=== PATIENT | female | born 1945 ===

== ENCOUNTER 2020-02-01 07:28 | Outpatient (CLI) | payer MEDICARE, OTHER, SELFPAY ==
--- NOTE | ~2020-02-01 | MM_ITS ---
EXAMINATION: MM screening [facility] BI w steven HISTORY: Screening TECHNIQUE: Craniocaudal and mediolateral oblique 3-D tomosynthesis images were obtained and synthetic 2-D images were generated. CAD analysis was submitted and interpreted. COMPARISON: Comparison to multiple prior studies sequentially, with oldest reviewed study dated 09/18. BREAST PARENCHYMAL COMPOSITION: There are scattered areas of fibroglandular density. FINDINGS: There is no evidence of suspicious mass, calcification, or architectural distortion to sugg est malignancy in either breast. There has been no suspicious interval change. IMPRESSION: 1. No mammographic evidence of malignancy. 2. Recommend routine screening mammography in one year. BI-RADS Category 1: Negative Reviewed, dictated and finalized at location A.
== END 2020-02-01 07:29 | disposition home or self-care (01) ==
PROVIDERS: PCP Family Medicine; Visit Provider Family Medicine
DX: Z12.31 Encounter for screening mammogram for malignant neoplasm of breast (principal)
CPT/HCPCS: 77063; 77067

== ENCOUNTER 2021-08-14 08:20 | Outpatient (CLI) | payer MEDICARE, OTHER, SELFPAY ==
--- NOTE | ~2021-08-14 | MM_ITS ---
EXAMINATION: MM screening [facility] BI w steven HISTORY: Screening mammogram TECHNIQUE: Craniocaudal and mediolateral oblique 3-D tomosynthesis images were obtained and synthetic 2-D images were generated. CAD analysis was submitted and interpreted. COMPARISON: 02/01/2020, 03/20/2018, by lateral screening mammogram examinations BREAST PARENCHYMAL COMPOSITION: There are scattered areas of fibroglandular density. FINDINGS: There is no evidence of suspicious mass, calcification, or architectural distortion to sugg est malignancy in either breast. There has been no suspicious interval change. IMPRESSION: 1. No mammographic evidence of malignancy. 2. Recommend routine screening mammography in one year. BI-RADS Category 1: Negative Reviewed, dictated and finalized at location A.
== END 2021-08-14 08:21 | disposition home or self-care (01) ==
LOC: ANHIMG 08:22
PROVIDERS: PCP Family Medicine; Visit Provider Family Medicine
DX: Z12.31 Encounter for screening mammogram for malignant neoplasm of breast (principal)
CPT/HCPCS: 77063; 77067

== ENCOUNTER 2024-02-16 09:33 | Outpatient (CLI) | payer MEDICARE, SELFPAY ==
--- NOTE | ~2024-02-16 | MM_ITS ---
EXAMINATION: MM screening [facility] BI w steven HISTORY: Screening TECHNIQUE: Craniocaudal and mediolateral oblique 3-D tomosynthesis images were obtained and synthetic 2-D images were generated. CAD analysis was submitted and interpreted. COMPARISON: No prior mammogram is available for comparison at this institution. Comparison to multipl e prior studies sequentially, with oldest reviewed study dated 09/18/2016. BREAST PARENCHYMAL COMPOSITION: Not dense: There are scattered areas of fibroglandular density. FINDINGS: There is no evidence of suspicious mass, calcification, or architectural distortion to sugg est malignancy in either breast. There has been no suspicious interval change. IMPRESSION: 1. No mammographic evidence of malignancy. 2. Recommend routine screening mammography in one year. BI-RADS Category 1: Negative Reviewed, dictated and finalized at location B.
== END 2024-02-16 09:34 | disposition home or self-care (01) ==
LOC: ANHIMG 09:36
PROVIDERS: PCP Family Medicine; Visit Provider Family Medicine
DX: Z12.31 Encounter for screening mammogram for malignant neoplasm of breast (principal)
CPT/HCPCS: 77063; 77067

== ENCOUNTER 2025-02-23 10:05 | Outpatient (CLI) | payer MEDICARE, SELFPAY ==
--- NOTE | ~2025-02-23 | MM_ITS ---
EXAMINATION: MM screening [facility] BI w steven HISTORY: Screening TECHNIQUE: Craniocaudal and mediolateral oblique 3-D tomosynthesis images were obtained and synthetic 2-D images were generated. CAD analysis was submitted and interpreted. COMPARISON: Comparison to multiple prior studies sequentially, with oldest reviewed study dated 09/18/2016. BREAST PARENCHYMAL COMPOSITION: Not dense: There are scattered areas of fibroglandular density. FINDINGS: There is no evidence of suspicious mass, calcification, or architectural distortion to suggest malignancy in either breast. There has been no suspicious interval change. IMPRESSION: 1. No mammographic evidence of malignancy. 2. Recommend routine screening mammography in one year. BI-RADS Category 1: Negative Reviewed, dictated and finalized at location B.
--- OUTSIDE RECORDS SUMMARY | 2025-02-23 10:47 | XMS_ITS | Clinical Summary ---
Author Organization [facility] Address [address] [place] [address] Care Team Providers Care Technology Intern Name Role Phone Henrry Mead MD Primary Care Provider [phone] Unknown, Notinfile Unavailable Unavailable Haroon Wagner MD Unavailable Allergies Active Allergy Reactions Criticality Noted Date Comments Erythromycin Palpitations Low 08/06/2017 Penicillin G Hives Medium 08/06/2017 Pseudoephedrine Dizziness Low 08/06/2017 Medications No known medications Active Problems Problem Noted Date Diagnosed Date Encounter for annual wellness exam in Medicare p atient 02/17/2023 Assessment & Plan (02/17/2023 1:56 PM CDT): Preventive exam; reviewed recommended preventive screenings and vaccinations. Encourage annual flu vaccine. Wear sunscreen/protective clothing when outdoors. -cologuard ordered earlier this month. -aware to call and schedule dexa Breast pain, left 02/10/2023 Assessment & Plan (02/10/2023 5:24 PM CDT): No abnormal findings on exam. Patient denies any skin changes or nipple discharge. Last mammogram completed 07/2021 was within normal limits. Will check diagnostic mammogram and ultrasound of left breast. Encounter for colorectal cancer screening 2022 Assessment & Plan (02/10/2023 5:23 PM CDT): Discussed colorectal cancer screening guidelines. No family history of colon cancers. Declines screening with colonoscopy; aware that it is gold standard for CRC screening. Patient is agreeable to cologuard. Aware that kit will be mailed with directions and to call office if not received in 2 weeks. To call office if no results received within 2 weeks of test submission. Encounter for osteoporosis s creening in asymptomatic postmenopausal patient 02/10/2023 Assessment & Plan (02/10/2023 5:23 PM CDT): Bone density testing ordered today. Mixed hyperlipidemia 02/10/2023 Assessment & Plan (02/17/2023 2:40 PM CDT): KJV=[id number] Declines statin medication. Discussed cardiovascular risk and ASCVD risk score 16.7%. Encouraged omega 3 fatty acid and reviewed diet recommendations. Will continue to monitor. Assessment & Plan (02/10/2023 5:23 PM CDT): Patient not currently taking any medications. Will check fasting labs and review with patient next week. Skin lesion of back 01/30/2022 Assessment & Plan (01/30/2022 10:22 PM CDT): Lesions noted on back as well as seborrheic keratosis. Would like eval by derm. Referral to Dr Uribe in [place]. Aware that her office should call but contact info given in case call not rec'd. BMI 28.0-28.9,adult 01/30/2022 Assessment & Plan (02/10/2023 5:24 PM CDT): Recommend healthy diet and regular physical activity. Assessment & Plan (01/30/2022 10:22 PM CDT): Reviewed need to lose weight, reviewed health benefits. Reviewed recommendations for daily intake & activity 20-30 minutes/day. Discussed healthy diet and importance of regular physical activity Mood disorder 06/18/2021 Overview (06/18/2021): Reviewed trigtgers. NO SI/HI. Reviewed supportive care and will follow response. Endometrial cancer 10/19/2019 Overview (10/19/2019): Added automatically from request for surgery [id number] Colon cancer screening 01/13/2019 Assessment & Plan (01/13/2019 6:48 PM CDT): Declines colonoscopy at this time (caring for ill ). Agreeable to cologuard. Has had colonoscopy at [facility]. Release signed to get copy of results. Encounter for screening for lipoid disorders Assessment & Plan (01/13/2019 6:49 PM CDT): Lipid panel ordered; will call w/results when received. Reviewed diet/exercise recommendations. Need for pneumococcal vaccination 01/13/2019 Assessment & Plan (01/13/2019 6:49 PM CDT): prevnar 13 vaccine given today. Discussed possible tenderness/redness at injection site. Patient noncompliant with statin medication 07/24 Overview (08/08/2017): Patient REFUSES to start treatment with statins. Seborrheic keratosis 02/21/2017 Assessment & Plan (01/30/2022 10:22 PM CDT): Lesions c/w seborrheic keratosis on trunk. Would like eval by derm. Referral to Dr Uribe in [place]. Aware that her office should call but contact info given in case call not rec'd. Milial cyst 02/21/2017 Sebaceous gland hyperplasia 02/21/2017 Infectious warts 08/01/2015 Multiple actinic keratoses 08/01/2015 Skin neoplasm 08/01/2015 Triggering of digit 04/11/2014 Resolved Problems Problem Noted Date Diagnosed Date Resolved Date Obesity (BMI 30.0-34.9) 06/18/2021 0911/2021 Overview (06/18/2021): Encoruage healthy food choices and will montior response. [facility] 01/13/2019 01/30/2022 Assessment & Plan (01/13/2019 6:49 PM CDT): Reviewed screening guidelines: no family history of breast or colon cancer. Encouraged monthly SBEs. Mammogram at [facility] fall 2017. Release signed to receive copy of results. Colonoscopy declined at this time but agreeable to cologuard. Reviewed dietary/activity recommendations. BMI 31.0-31.9,adult 01/13/2019 01/31/20 22 Assessment & Plan (01/13/2019 6:49 PM CDT): Reviewed need to lose weight, reviewed health benefits. Reviewed recommendations for daily intake & activity 20-30 minutes/day. Discussed healthy diet and importance of regular physical activity. Encounters Date Type Department Care Team Description 02/02/2025 2:45 PM CDT [facility] [place] [facility] [address] [place] [address] [place] [address] Cathy Dowling MD Endometrial cancer (Primary Dx) from Last 3 Months Immunizations Immunization Administration Dates Next Due Influenza, Unspecified 02/17/2023(Deferr ed: Patient Refused),02/10/2023(Deferred: Patient Refused),04/16/2022(Deferred: Patient Refused),02/23/2022(Deferred: Patient Refused),02/23/2022(Deferred: Patient Refused),05/29/2021(Deferred: Patient Refused),05/26/2021(Deferred: Patient Refused),02/23/2021(Deferred: Patient Refused),08/23/2020(Deferred: Patient Refused),05/26/2020(Deferred: Patient Refused),02/24/2020(Deferred: Patient Refused),02/24/2020(Deferred: Patient Refused),02/22/2018 Pneumococcal Conjugate PCV 13 01/12/2019 Pneumococcal Polysaccharide PPV23 04/14/2017 Surgical History Surgery Date Site/Laterality Comments APPENDECTOMY 05/26/2003 - 05/25/2004 HYSTERECTOMY PERCUTANEOUS NEEDLE BIOPSY MUSCLE 04/10/2023 N/A Medical History Medical History Date Comments Hypercholesteremia Cancer (HCC) Family History Medical History Relation Name Comments Cancer Daughter Maggie ocular melonoma , spread to kidney (had nephrectomy) Heart attack Father Heart disease Father Hypertension Father Breast cancer Mother 6 mos aft er dx Cancer Mother Hypertension Sister 1 Stephanie Hypertension Sister 2 Candie Heart attack Son Jaime smokes, drinks, caffeine drinks Relation Name Status Comments Daughter Maggie Alive melanoma of ret [place] Father Mother Sister 1 Stephanie Sister 2 Candie Alive Son Jaime Alive Social History Tobacco Use Types Packs/Day Years Used Date Smoking Tobacco: Never Smokeless Tobacco: Never Tobacco Cessation:Counseling Given: Not Answered Alcohol Use Standard Drinks/Week Comments No 0 (1 standard drink = 0.6 oz pur e alcohol) AUDIT-C Answer Date Recorded Q1: How often do you have a drink containing alc ohol? Never 01/29/2022 Average Number of Drinks Not on file 022 Frequency of Binge Drinking Not on file 10/2021 PHQ-2 Answer Date Recorded PHQ-2 Total Score (If total score is 3 or more points, staff should administer the PHQ-9) 2 02/17/2023 Comments No Sex and Gender Information Value Date Recorded Sex Assigned at Not on file Legal Sex Female 11:27 PM WOODEN [employer] Gender Identity Female 06/26/2021 8:23 AM WO[employer]EN [employer]ENCE E[employer] Sexual Orientation Straight 06/26/2021 8: 23 AM [employer]EN [employer]ENCE [employer] Obstetrics History Para Term AB IAB SAB Ectopic Multiple Livin g Live Births 2 2 2 0 0 0 0 0 0 2 2 Date Outcome GA Total Labor Labor/2nd/3rd Weight Sex Type Anes PTL Kyleigh A1 A5 Name Clin Term Term Last Filed Vital Signs Vital Sign Reading Time Taken Comments Blood Pressure 131/81 02/02/2025 3:09 PM CDT Pulse 105 02/02/2025 3:09 PM CDT Temperature 37 C (98.6 F) 02/02/2025 3:09 PM CDT Respiratory Rate 18 02/02/2025 3:09 PM CDT Oxygen Saturation 97% 02/02/2025 3:09 PM CDT Inhaled Oxygen Concentration - - Weight 74.8 kg (164 lb 12.8 oz) 02/02/2025 3:09 PM CDT Height 170.2 cm (5' 7) 06/23/2024 11:3 1 AM WO[employer]EN [employer]ENCE [employer] Body Mass Index 25.81 06/23/2024 11:31 AM WOODEN FENCE E[employer]OR Plan of Treatment Health Maintenance Due Date Last Done Comments Hepatitis C Screening 1945 Hepatitis B Screening 1964 Zoster Vaccine (1 of 2) 1996 Depression Screening 02/18/2024 02/17/2023, 02/10/2023, 04/16/2022, Additional history exists Fall Risk Assessment 02/18/2024 02/17/2023, 02/10/2023, 04/16/2022, Additional history exists Well Visit 65+ 02/18/2024 02/17/2023, 03/27, 08/06/2017 Influenza Vaccine (#1) 2025 02/22/2018, 2006 Osteoporosis Screening-Bone Density Scan 03/24/2025 03/24/2023, 09/05/2020, 11/12/2016 Colon Cancer Screening-DNA Stool 03/06/2026 03/06/2023, 02/12/2019, 12/16/2000 DTaP/Tdap/Td Vaccine (2 - Td or Tdap) 09/12/2026 09/12/2016, 08/28/2002 Colon Cancer Screening-CT Colonography Discontinued 12/16/2000 Colon Cancer Screening-Colonoscopy Discontinued 12/16/2000 Colon Cancer Screening-Sigmoidoscopy Discontinued 12/16/2000 Pneumococcal vaccine 65+ Completed 019, 04/14/2017, 09/12/2016, Additional history exists Colon Cancer Screening-FIT Discontinued 03/06, 02/12/2019, 12/16/2000 Breast Cancer Screening-Mammogram Discontinued 02/16/2024, 02/11/2023, 08/14/2021, Additional history exists Procedures Procedure Name Priority Date/Time Associated Diagnosis Comments DIAGNOSTIC MAMMOGRAM BILATERAL W AROLDO Schedule Routine, Read Routine (OP Routine) 02/16/2024 DEXA AXIAL SKELETON BONE DENSITY 1 OR MORE SITES Schedule Routine, Read Routine (OP Routine) 03/24/2023 12:24 PM CDT Encounter for osteoporosis screening in asymptomatic postmenopausal patient STOOL DNA COLOGUARD Routine 03/06/2023 11:30 AM CDT Encounter for colorectal cancer screening COLONOSCOPY Routine 12/16/2000 from Last 3 Months or Most Recently Relevant to Health Maintenance Results * Diagnostic Mammogram Bilateral W Aroldo (02/16/2024) Anatomical Region Laterality Modality Breast Bilateral Mammography 02/16/2024 us Historical Provider MD ROBINS MAMMO PROCEDURES Abbey l Result * Dexa Axial Skeleton Bone Density 1 Or 2 Site (03/24/2023 12:24 PM CDT) Anatomical Region Laterality Modality Body N/A Other 03/24/2023 7:05 PM CDT Narrative 03/24/2023 7:06 PM CDT EXAM DESCRIPTION: DEXA AXIAL SKELETON BONE DENSITY 1 OR MORE SITES REASON FOR STUDY: 77 y/o year old F with given history of: post-menopausal osteoporosis prevention Screening Academic Interventionist/Model: [employer] (S/N [id number]) CLINICAL INFORMATION: Current height: 66 inches Maximum height: 67.25 inches Weight: 173 pounds Risk factors: Postmenopausal, cancer COMPARISON: 09/05/2020 Dissimilar scan types or analysis methods precludes assessment for calculating a significant change. FINDINGS: AP LUMBAR SPINE L1-L4: Total BMD is 0.972 g/cm2 T-score is -0.7 LEFT HIP: Total BMD is 0.865 g/cm2 T-score is -0.6 Femoral neck BMD is 0.789 g/cm2 T-score is -0.5 FRAX: FRAX not reported due to T-scores of hip, femoral neck and/or spine being at or above -1.0 (Normal). IMPRESSION: Normal bone mass. REFERENCE: Bone mineral density: Normal (T-score above or = -1.0) Low bone mass (T-score between -1.0 and -2.5) replaces the previously used term osteopenia Osteoporosis (T-score = or below -2.5) Medical evaluation for secondary causes of low bone mineral density may be appropriate. FRAX is a World Health Organization validated fracture risk assessment tool that calculates a person's 10 year probability of a major osteoporosis related fracture and hip fracture. According to the National Osteoporosis Foundation guidelines, postmenopausal women and men age 50 or older with low bone mass and a 10 year probability of a major osteoporosis related fracture = or greater than 20% or a 10 year probability of a hip fracture = or greater than 3% should be considered for treatment. For further information, including treatment recommendations, please refer to the 2019 ISCD Official Positions (http://www.iscd.org) and the NOF's Clinician's Guide to Prevention and Treatment of Osteoporosis (http://www.nof.org/professionals/clinical-guidelines) THIS IS AN ELECTRONICALLY VERIFIED FINAL REPORT 03/24/2023 7:06 PM - Electronically signed by Gregg Adamson M.D. 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 FINDINGS: AP LUMBAR SPINE L1-L4: Total BMD is 0.972 g/cm2 T-score is -0.7 LEFT HIP: Total BMD is 0.865 g/cm2 T-score is -0.6 Femoral neck BMD is 0.789 g/cm2 T-score is -0.5 FRAX: FRAX not reported due to T-scores of hip, femoral neck and/or spine beingat or above -1.0 (Normal). IMPRESSION: Normal bone mass. REFERENCE: Bone mineral density: Normal (T-score above or = -1.0) Low bone mass (T-score between -1.0 and -2.5) replaces thepreviously used term osteopenia Osteoporosis (T-score = or below -2.5) Medical evaluation for secondary causes of low bone mineral density may be appropriate. FRAX is a World Health Organization validated fracture risk assessmenttool that calculates a person's 10 year probability of a major osteoporosisrelated fracture and hip fracture. According to the National OsteoporosisFoundation guidelines, postmenopausal women and men age 50 or older with low bonemass and a 10 year probability of a major osteoporosis related fracture = or greater than 20% or a 10 year probability of a hip fracture = or greaterthan 3% should be considered for treatment. For further information, including treatment recommendations, please referto the 2019 ISCD Official Positions (http://www.iscd.org) and the NOF's Clinician's Guide to Prevention and Treatment of Osteoporosis (http://www.nof.org/professionals/clinical-guidelines) THIS IS AN ELECTRONICALLY VERIFIED FINAL REPORT 03/24/2023 7:06 PM - Electronically signed by Gregg Adamson M.D. MF: [email or web address] Report ID: [id number] Reading Location: [place] [address] Kath Pathak NP IMG DXA PROCEDURES Final Re sult * Stool DNA - Cologuard (03/06/2023 11:30 AM CDT) [facility] Stool DNA - Cologuard Negative Negative [facility] (CLIA #:[id number]) Comment: NEGATIVE TEST RESULT. A negative Cologuard result indicates a low likelihood that a colorectal cancer (CRC) or advanced adenoma (adenomatous polyps with more advanced pre-malignant features) is present. The chance that a person with a negative Cologuard test has a colorectal cancer is less than 1 in 1500 (negative predictive value >99.9%) or has an advanced adenoma is less than 5.3% (negative predictive value 94.7%). These data are based on a prospective cross-sectional study of 10,000 individuals at average risk for colorectal cancer who were screened with both Cologuard and colonoscopy. (Nilay Leslie al, N Engl J Med 2014;370(14):0723-8097) The normal value (reference range) for this assay is negative. COLOGUARD RE-SCREENING RECOMMENDATION: Periodic colorectal cancer screening is an important part of preventive healthcare for asymptomatic individuals at average risk for colorectal cancer. Following a negative Cologuard result, the [place] Cancer Society and U.S. Multi-Society Task Force screening guidelines recommend a Cologuard re-screening interval of 3 years. References: [place] [employer] Guideline for Colorectal Cancer Screening: https://www.cancer.org/cancer/osoob-aajuzp-cmzcow/aibgmuyeq-wczetmgzl-ogvddyt/ac s-rec ommendations.html.; Freddy YOUNG, Wayne BERNARD, Santi POWER, Colorectal Cancer Screening: Recommendations for Physicians and Patients from the U.S. Multi-Society Task Force on Colorectal Cancer Screening , Am J Gastroenterology 2017; 112:6983-9752. TEST DESCRIPTION: Composite algorithmic analysis of stool DNA-biomarkers with hemoglobin immunoassay. Quantitative values of individual biomarkers are not reportable and are not associated with individual biomarker result reference ranges. Cologuard is intended for colorectal cancer screening of adults of either sex, 45 years or older, who are at average-risk for colorectal cancer (CRC). Cologuard has been approved for use by the U.S. FDA. The performance of Cologuard was established in a cross sectional study of average-risk adults aged 50-84. Cologuard performance in patients ages 45 to 49 years was estimated by sub-group analysis of near-age groups. Colonoscopies performed for a positive result may find as the most clinically significant lesion: colorectal cancer [4.0%], advanced adenoma (including sessile serrated polyps greater than or equal to 1cm diameter) [20%] or non- advanced adenoma [31%]; or no colorectal neoplasia [45%]. These estimates are derived from a prospective cross-sectional screening study of 10,000 individuals at average risk for colorectal cancer who were screened with both Cologuard and colonoscopy. (Nilay Leslie al, N Engl J Med 2014;370(14):2257-2140.) Cologuard may produce a false negative or false positive result (no colorectal cancer or precancerous polyp present at colonoscopy follow up). A negative Cologuard test result does not guarantee the absence of CRC or advanced adenoma (pre-cancer). The current Cologuard screening interval is every 3 years. ([place] [employer] Society and U.S. Multi-Society Task Force). Cologuard performance data in a 10,000 patient pivotal study using colonoscopy as the reference method can be accessed at the following location: www.Ide[employer]/results. Additional description of the Cologuard test process, warnings and precautions can be found at www.cologuard.com. Stool 03/06/2023 11:3 0 AM CDT 03/07/2023 4:30 PM CDT Kath Pathak NP LAB BODY FLUIDS AND STOOLS ORDERABLES Final Result [facility] (CLIA #:[id number]) [place] [address] * Colonoscopy (12/16/2000) Anatomical Region Laterality Modality Other Historical Provider MD ENDOSCOPY PROCEDURES Abbey l Result from Last 3 Months or Most Recently Relevant to Health Maintenance [place] [address] [facility] MEDICARE [facility] MEDICARE Address: [address] [address] [facility] MEDICARE ADV[facility] MEDICARE Address: [place] [phone] Care Teams Technology Intern Relationship Specialty Start Date End Date Henrry Mead MD [address] [place] [address] PCP - General Family Medicine 01/12/19 Unknown, Notinfile Referring Physician 08/09/20 Haroon Wagner MD [address] [facility] [place] [address] Surgeon Orthopedic Surgery 02/17/23
--- OUTSIDE RECORDS SUMMARY | 2025-02-23 10:47 | XMS_ITS | Encounter Summary ---
Author Organization [facility] Healthcare Address [address] [place] [address] Care Team Providers Care Letter Stamping Machine Operator Name Role Phone Henrry Mead MD Primary Care Provider [phone] Unknown, Notinfile Unavailable Unavailable Haroon Wagner MD Unavailable Reason for Visit * Reason Onset Date Comments Scheduling Appointments 09/04/2020 Dexa Neda t Confirmation- no answer Encounter Details Date Type Department Care Team (Late st Contact Info) Description 09/04/2020 Telephone [facility] [address] [place] [address] Adrianna Molina RT Scheduling Appointments ( Dexa Appt Confirmation- no answer) Social History Tobacco Use Types Packs/Day Years Used Date Smoking Tobacco: Never Smokeless Tobacco: Never Alcohol Use Standard Drinks/Week Comments No 0 (1 standard drink = 0.6 oz pur e alcohol) PHQ-2 Answer Date Recorded PHQ-2 Total Score (If total score is 3 or more points, staff should administer the PHQ-9) 0 08/23/2020 Comments No Sex and Gender Information Value Date Recorded Sex Assigned at Not on file Legal Sex Female 11:27 PM 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 Gender Identity Female 06/26/2021 8:23 AM 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 Sexual Orientation Straight 06/26/2021 8: 23 AM 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 documented as of this encounter Plan of Treatment Not on file documented as of this encounter Visit Diagnoses Not on filedocumented in this encounter Additional Health Concerns Infection Onset Date Last Indicated Resolved Time Exposure, COVID-19 Comment:Added automatically based on COVID19 lab answers indicating exposure risk 05/22/2023 05/22/2023 05/22/2023 9:[address] COVID: Suspected 05/22/2023 05/22/2023 05/22/2023 9:57 AM 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 COVID19 05/22/2023 05/22/2023 06/01/2023 3:05 AM 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 COVID: Recovered Comment:Added based on recent COVID infection. 06/01/2023 06/10/2023 08/30/2023 3:05 AM C DT documented as of this encounter Care Teams Letter Stamping Machine Operator Relationship Specialty Start Date End Date Henrry Mead MD [address] [place] [address] PCP - General Family Medicine 01/12/19 Unknown, Notinfile Referring Physician 08/09/20 Haroon Wagner MD [address] [facility] [address] [place] [address] Surgeon Orthopedic Surgery 02/17/23 documented as of this encounter
--- OUTSIDE RECORDS SUMMARY | 2025-02-23 10:47 | XMS_ITS | Encounter Summary ---
Author Organization [facility] Healthcare Address [address] [place] [address] Care Team Providers Care Township Clerk Name Role Phone Henrry Mead MD Primary Care Provider [phone] Unknown, Notinfile Unavailable Unavailable Haroon Wagner MD Unavailable [phone] Encounter Details Date Type Department Care Team (Late st Contact Info) Description 09/04/2020 Telephone 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 Gender Identity Female 06/26/2021 8:23 AM QUARTER SEAMER Sexual Orientation Straight 06/26/2021 8: 23 AM QUARTER SEAMER documented as of this encounter Plan of Treatment Not on file documented as of this encounter Visit Diagnoses Not on filedocumented in this encounter Additional Health Concerns Infection Onset Date Last Indicated Resolved Time Exposure, COVID-19 Comment:Added automatically based on COVID19 lab answers indicating exposure risk 05/22/2023 05/22/2023 05/22/2023 9:[address] COVID: Suspected 05/22/2023 05/22/2023 05/22/2023 9:57 AM QUARTER SEAMER COVID19 05/22/2023 05/22/2023 06/01/2023 3:05 AM QUARTER SEAMER COVID: Recovered Comment:Added based on recent COVID infection. 06/01/2023 06/10/2023 08/30/2023 3:05 AM C DT documented as of this encounter Care Teams Township Clerk Relationship Specialty Start Date End Date Henrry Mead MD [address] [place] [address] PCP - General Family Medicine 01/12/19 Unknown, Notinfile Referring Physician 08/09/20 Haroon Wagner MD [address] [facility] [address] [place] [address] Surgeon Orthopedic Surgery 02/17/23 documented as of this encounter
--- OUTSIDE RECORDS SUMMARY | 2025-02-23 10:47 | XMS_ITS | Clinical Summary ---
Author Organization [facility] Address [address] 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 This disclosure is being madepursuant to the Care Everywhere program and may not contain all information available regarding this patient. Last updated 18.[facility] Allergies Active Allergy Reactions Criticality Noted Date Comments Azithromycin GI Discomfort 07/17/2018 Also metallic taste in mouth Erythromycin Palpitations Low 08/06/2017 Penicillins Rash Medium 07/14/2018 Pseudoephedrine Base Dizziness Low 08/06/2017 Medications * Be aware that medications may not be up to date on this document. Alwaysverify current medications with the patient. albuterol HFA (PROVENTIL;ANGELA ANGIE;PROAIR) 108 (90 [place]) MCG/ACT inhalerIndicatio ns:Acute bronchitis, unspecified organism Inhale 2 puffs by mouth every 6 hours as needed for Wheezing or Cough 1 Inhaler 9 Active fluticasone propionate (FLONASE) 50 MCG/ACT nasal sprayIndications :Acute sinusitis, recurrence not specified, unspecified location [place] 2 sprays into each nostril once daily 1 bottles 9 Active Active Problems No known active problems Social History Tobacco Use Types Packs/Day Years Used Date Smoking Tobacco: Never Smokeless Tobacco: Never Comments No Sex and Gender Information Value Date Recorded Sex Assigned at Not on file Legal Sex Female 2:30 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 Gender Identity Not on file Sexual Orientation Not on file Last Filed Vital Signs Vital Sign Reading Time Taken Comments Blood Pressure 146/90 07/14/2018 10:07 AM TOY MECHANIC Pulse 108 07/14/2018 10:07 AM TOY MECHANIC Temperature 37.2 C (99 F) 07/14/2018 10:07 AM TOY MECHANIC Respiratory Rate 16 07/14/2018 10:07 AM TOY MECHANIC Oxygen Saturation 97% 07/14/2018 10:07 AM TOY MECHANIC Inhaled Oxygen Concentration - - Weight 85.3 kg (188 lb) 07/14/2018 10:07 AM TOY MECHANIC Height 165.1 cm (5' 5) 07/14/2018 10:07 AM TOY MECHANIC Body Mass Index 31.28 07/14/2018 10:07 AM TOY MECHANIC Plan of Treatment Health Maintenance Due Date Last Done Comments BONE DENSITY TESTING 1945 HEPATITIS C SCREENING 06/23/1964 DTAP/TDAP/TD VACCINES (1 - Tdap) 1965 PNEUMOCOCCAL VACCINE 50+ (1 of 1 - PCV) 1996 ZOSTER VACCINE (1 of 2) 1996 Respiratory Syncytial Virus (RSV) Vaccine Pt: or over 60 yrs (1 - 1-dose 75+ series) 2021 DEPRESSION SCREENING 05/26/2024 COVID-19 VACCINE ( - 2023-2 5 season) 2025 INFLUENZA VACCINE (#1) 2025 8, 03/14/2017 HEPATITIS B VACCINE Aged Out No longe r eligible based on patient's age to complete this topic HIB VACCINE Aged Out No longer eligi ble based on patient's age to complete this topic HPV VACCINE Aged Out No longer eligi ble based on patient's age to complete this topic MENINGOCOCCAL (Group B) VACCINE SHARED DECISION-MAKING Aged Out No longer eligible based on patient's age to complete this topic MENINGOCOCCAL GROUPS A/C/Y/W VACCINE Aged Out No longer eligible b ased on patient's age to complete this topic Insurance MEDICARE [facility] MEDICARE
== END 2025-02-23 10:06 | disposition home or self-care (01) ==
LOC: ANHFOHIMG 10:07
PROVIDERS: PCP Family Medicine; Visit Provider Family Medicine
DX: Z12.31 Encounter for screening mammogram for malignant neoplasm of breast (principal)
CPT/HCPCS: 77063; 77067